=== PATIENT | female | born 1970 | race Caucasian/White ===

== ENCOUNTER 2017-10-02 19:51 | Emergency (ER) | payer BC ==
[2017-10-02 20:00] VITALS: BP 131/82
[2017-10-02] MEDS ORDERED: KETOROLAC TROMETHAMINE INJ/PF 30 MG/1 ML SDV IM ONE (20:16)
--- NOTE | 2017-10-02 20:36 | ER Document Report ---
HPI - HPI Pain Level: 3 Notes: Patient is a 46-year-old female with no significant past medical history aside from chronic left posterior ankle issues who presents to the ED complaining of left medial ankle pain and intermittent swelling 2-3 months. Patient does not recall any previous injury or mechanism of action. The pain does not radiate. Patient states that she is still ambulatory, but does have discomfort in doing so. Patient states that she has been seen by a insurance coordinator for a lump to the posterior foot/ankle, but they are not sure what it is. Patient states that that has remained unchanged, but does have medial ankle pain. Denies any drug allergies. No other concerns or complaints at this time. Denies any headache, fever, neck pain, URI, sore throat, chest pain, palpitations, syncope, cough, shortness of breath, wheeze, dyspnea, abdominal pain, nausea/vomiting/diarrhea, urinary retention, dysuria, hematuria, back pain, loss of control of bowel or bladder, numbness/tingling, muscle paralysis/weakness, or rash. - ROS Systems Reviewed and Negative: Yes All other systems reviewed and negative - REPRODUCTIVE LMP: na Reproductive: DENIES: : Past Medical History - Social History Smoking Status: Never Smoker Family History: Reviewed & Not Pertinent GI Medical History: Reports: Hx Gastroesophageal Reflux Disease Past Surgical History: Reports: Hx Cholecystectomy, Hx Hysterectomy, Hx Oral Surgery, Hx Orthopedic Surgery, Hx Tubal Ligation - Immunizations Immunizations up to date: Yes Hx Diphtheria, Pertussis, Tetanus Vaccination: Yes Vertical Provider Document - CONSTITUTIONAL Agree With Documented VS: Yes Notes: PHYSICAL EXAMINATION: GENERAL: Well-appearing, well-nourished and in no acute distress. LUNGS: Breath sounds clear to auscultation bilaterally and equal. No wheezes rales or rhonchi. HEART: Regular rate and rhythm without murmurs, rubs, gallops. Musculoskeletal: Left ankle: FROM to passive/active. Strength 5+/5. + mild swelling noted medially. + tenderness to the medial malleolus and inferior to. N/V intact distal. No other bony tenderness of the foot/ankle. Achilles intact. Marybel neg b/l (no erythema/asymmetry/tenderness). Pt able to weight bear with steady gait. Extremities: No cyanosis, clubbing, or edema b/l. Peripheral pulses 2+. Capillary refill less than 3 seconds. NEUROLOGICAL: Normal sensory, motor exams PSYCH: Normal mood, normal affect. SKIN: Warm, Dry, normal turgor, no rashes or lesions noted. - INFECTION CONTROL TRAVEL OUTSIDE OF THE [place] IN LAST 30 DAYS: No Course - Re-evaluation Re-evalutation: 10/02/17 20:45 Patient is an afebrile, well-hydrated, 46-year-old female who presents to the ED with left medial ankle pain, suspect inflammatory. Vitals are acceptable. PE is otherwise unremarkable for any neurovascular compromise, obvious tendon/ ligament rupture, obvious fracture/dislocation, septic joint. X-ray was unremarkable for any acute pathology. Toradol given IM today. Ankle stirrup splint provided today. Recommend conservative measures for symptoms. Recheck with your PCM in 3-5 days. Consider consult with orthopedic/physical therapy. Return to the ED with any worsening/concerning symptoms otherwise as reviewed discharge. Patient is in agreement. - Vital Signs Vital signs: Temp Pulse Resp BP Pulse Ox 98.6 F 81 16 131/82 H 95 10/02/17 19:59 10/02/17 19:59 10/02/17 19:59 10/02/17 19:59 10/02/17 19:59 Discharge - Discharge Clinical Impression: Left ankle pain Qualifiers: Chronicity: acute Qualified Code(s): M25.572 - Pain in left ankle and joints of left foot Condition: Stable Disposition: HOME, SELF-CARE Instructions: Ankle Stirrup Splint ([facility]), Ice & Elevation ([facility]) Additional Instructions: Rest, Ice, Compression, Elevation Use splint as directed Tylenol/ibuprofen as needed Light stretches daily Strength exercises as able Moist heat and massage may help F/u with your PCP in 3-5 days for a recheck Consider consult(s) with Orthopedics/physical therapy for ongoing/worsening symptoms Return to the ED with any worsening symptoms and/or development of fever, headache, chest pain, palpitations, syncope, shortness of breath, trouble breathing, abdominal pain, n/v/d, muscle weakness/paralysis, numbness/tingling, swelling, redness, or other worsening symptoms that are concerning to you. Prescriptions: Naproxen 500 mg PO BID PRN #30 tablet PRN Reason: Forms: Elevated Blood Pressure Referrals: [facility] ([facility]) [Provider Group] - Follow up as needed
--- NOTE | 2017-10-02 20:45 | RADIOLOGY REPORT (SQ) ---
EXAM DESCRIPTION: ANKLE LEFT COMPLETE COMPLETED DATE/TIME: 10/02/2017 8:34 pm REASON FOR STUDY: left medial ankle pain COMPARISON: None. NUMBER OF VIEWS: Three views. TECHNIQUE: AP, lateral, and oblique radiographic images acquired of the left ankle. LIMITATIONS: None. FINDINGS: MINERALIZATION: Normal. BONES: No acute fracture or dislocation. No worrisome bone lesions. Plantar calcaneal spurring. JOINTS: No effusions. SOFT TISSUES: No soft tissue swelling. No foreign body. OTHER: No other significant finding. IMPRESSION: CALCANEAL SPURRING. NO RADIOGRAPHIC EVIDENCE OF ACUTE INJURY. TECHNICAL DOCUMENTATION: JOB ID: [id number]- All Rights Reserved Reading location - IP/workstation name: [email or web address]
== END 2017-10-02 21:02 | disposition home or self-care (01) ==
LOC: ER 19:51
DX: M25.572 Pain in left ankle and joints of left foot (principal); M25.472 Effusion, left ankle
CPT/HCPCS: 99283; 96372; 73610; L1902; J1885

== ENCOUNTER 2020-04-17 12:57 | Emergency (ER) | payer SELFPAY ==
[2020-04-17 13:08] VITALS: BP 139/72
--- NOTE | 2020-04-17 14:25 | ER Document Report ---
ED Medical Screen (RME) - General Chief Complaint: Cough Stated Complaint: COUGH Time Seen by Provider: 04/17/20 14:21 Mode of Arrival: Ambulatory Information source: Patient Notes: 49-year-old female presented to ED for cough and congestion. She denies any fever sore throat loss or change of smell or taste. She denies any covered symptoms. She does smoke a pack a day. She states she does get bronchitis frequently she usually needs steroids and azithromycin from her doctor but she has lost her insurance so she cannot follow-up with her doctor. We will put her on the [place] I did get the x-ray flu and strep test and she will be seen by another provider. I have greeted and performed a rapid initial assessment of this patient. A comprehensive ED assessment and evaluation of the patient, analysis of test results and completion of medical decision making process will be conducted by an additional ED providers. TRAVEL OUTSIDE OF THE [place] IN LAST 30 DAYS: No - Related Data Allergies/Adverse Reactions: No Known Allergies Allergy (Verified 05/03/15 09:57) Past Medical History Renal/ Medical History: Denies: Hx Peritoneal Dialysis GI Medical History: Reports: Hx Gastroesophageal Reflux Disease Past Surgical History: Reports: Hx Cholecystectomy, Hx Hysterectomy, Hx Oral Surgery, Hx Orthopedic Surgery, Hx Tubal Ligation - Immunizations Immunizations up to date: Yes Hx Diphtheria, Pertussis, Tetanus Vaccination: Yes Physical Exam - Vital signs Vitals: Temp Pulse Resp BP Pulse Ox 98.9 F 88 16 139/72 H 98 04/17/20 13:07 04/17/20 13:07 04/17/20 13:07 04/17/20 13:07 04/17/20 13:07 Course - Vital Signs Vital signs: Temp Pulse Resp BP Pulse Ox 98.9 F 88 16 139/72 H 98 04/17/20 13:07 04/17/20 13:07 04/17/20 13:07 04/17/20 13:07 04/17/20 13:07
== END 2020-04-17 15:02 | disposition left against medical advice (07) ==
LOC: ER 12:57
DX: R05 Cough (principal); R68.89 Other general symptoms and signs; Z90.49 Acquired absence of other specified parts of digestive tract; Z90.710 Acquired absence of both cervix and uterus
CPT/HCPCS: 99281

== ENCOUNTER 2020-04-19 10:25 | Emergency (ER) | payer SELFPAY ==
[2020-04-19] MEDS ORDERED: PREDNISONE 20 MG TABLET PO ONE (10:57)
[2020-04-19] MEDS ORDERED: IPRATROPIUM/ALBUTEROL 0.5-2.5 MG/3 ML AMPUL NEB ONE (10:57)
--- NOTE | 2020-04-19 11:01 | ER Document Report ---
ED Respiratory Problem - General Chief Complaint: Congestion Stated Complaint: WHEEZING,CONGESTION,SORE THROAT Time Seen by Provider: 04/19/20 10:38 Notes: CHIEF COMPLAINT: Cough and shortness of breath HPI: 49-year-old female who is a pack-a-day smoker presenting for cough and shortness of breath states "I think I have bronchitis". Patient states she gets this every year. No fever. Patient has fluticasone and albuterol that she has been using last used her nebulizer at 6 AM this morning. Did not see her PCP for evaluation of the symptoms. Patient states she would like to be tested for COVID ROS: See HPI - all other systems were reviewed and are otherwise negative Constitutional: no fever Eyes: no drainage, no blurred vision ENT: no runny nose, no sore throat Cardiovascular: no chest pain Resp: + SOB, + cough GI: no vomiting, no diarrhea, no abdominal pain : no dysuria Integumentary: no rash Allergy: no hives Musculoskeletal: no extremity pain or swelling Neurological: no numbness/tingling, no weakness MEDICATIONS: I agree with the patient medications as charted by the RN. ALLERGIES: I agree with the allergies as charted by the RN. PAST MEDICAL HISTORY/PAST SURGICAL HISTORY: Reviewed and agree as charted by RN. SOCIAL HISTORY: Reviewed and agree as charted by RN. FAMILY HISTORY: No significant familial comorbid conditions directly related to patient complaint EXAM: Reviewed vital signs as charted by RN. CONSTITUTIONAL: Alert and oriented and responds appropriately to questions. Well-appearing; well-nourished HEAD: Normocephalic; atraumatic EYES: PERRL; Conjunctivae clear, sclerae non-icteric ENT: normal nose; no rhinorrhea; moist mucous membranes; pharynx without lesions noted, no uvula edema or deviation, no tonsillar hypertrophy, phonation normal NECK: Supple without meningismus; non-tender; no cervical lymphadenopathy, no masses CARD: RRR; no murmurs, no clicks, no rubs, no gallops; symmetric distal pulses RESP: Normal chest excursion without splinting or tachypnea; breath sounds noted to have expiratory wheezing in all lung jalloh, no rhonchi, no rales, pulse oximetry 97% on room air not hypoxic ABD/GI: Normal bowel sounds; non-distended; soft, non-tender, no rebound, no guarding; no palpable organomegaly or masses. BACK: The back appears normal and is non-tender to palpation, there is no CVA tenderness EXT: Normal ROM in all joints; non-tender to palpation; no cyanosis, no e ffusions, no edema SKIN: Normal color for age and race; warm; dry; good turgor; no acute lesions noted NEURO: Moves all extremities equally; Motor and sensory function intact PSYCH: The patient's mood and manner are appropriate. Grooming and personal hygiene are appropriate. MDM: 49-year-old female with cough and shortness of breath for 4 days. Will give breathing treatment as she is actively wheezing will start on steroids. She declines chest x-ray for infiltrate or pneumonia at this time. She would like a COVID test. TRAVEL OUTSIDE OF THE [place] IN LAST 30 DAYS: No - Related Data Allergies/Adverse Reactions: No Known Allergies Allergy (Verified 05/03/15 09:57) Past Medical History - Social History Smoking Status: Current Every Day Smoker Family History: Reviewed & Not Pertinent Renal/ Medical History: Denies: Hx Peritoneal Dialysis GI Medical History: Reports: Hx Gastroesophageal Reflux Disease Past Surgical History: Reports: Hx Cholecystectomy, Hx Hysterectomy, Hx Oral Surgery, Hx Orthopedic Surgery, Hx Tubal Ligation - Immunizations Immunizations up to date: Yes Hx Diphtheria, Pertussis, Tetanus Vaccination: Yes Physical Exam - Vital signs Vitals: Temp Pulse Resp BP Pulse Ox 98.8 F 77 16 127/88 H 97 04/19/20 10:04/19/20 10:04/19/20 10:04/19/20 10:04/19/20 10:29 Course - Re-evaluation Re-evalutation: 04/19/20 13:26 Patient feels much better. Lung sounds are improved still with very slight wheezing expiratory. Patient will be a person under investigation for COVID-19 at this time self quarantine at home. She has albuterol for her nebulizer. We will keep her on prednisone. Follow-up PCP. I will place the patient on doxycycline given her smoking history for a lower respiratory infection. - Vital Signs Vital signs: Temp Pulse Resp BP Pulse Ox 98.8 F 77 16 127/88 H 97 04/19/20 10:29 04/19/20 10:29 04/19/20 10:04/19/20 10:29 04/19/20 10:29 Discharge - Discharge Clinical Impression: Person under investigation for COVID-19, Lower respiratory infection, Acute bronchospasm, Tobacco use Condition: Stable Disposition: HOME, SELF-CARE Additional Instructions: Stop smoking. Use your nebulizer with the albuterol every 4 hours to help with wheezing and shortness of breath. Continue the prednisone as prescribed, you were given today's dose in the emergency department. Take the doxycycline as prescribed to treat the lower respiratory infection. Follow-up with your primary care provider for further evaluation and treatment call for appointment. You are considered a person under investigation for COVID-19 at this time, self quarantine at home over the next 2 to 5 days pending her test results which may take 2 to 5 days. You should hear from someone at the hospital about your test results Prescriptions: Prednisone [Deltasone 20 mg Tablet] 2 tab PO DAILY 5 Days #10 tablet Doxycycline Monohydrate 100 mg PO BID #20 capsule Referrals: ALENA AMBROSE MD [COMMUNITY BASED STAFF] - Follow up as needed
[2020-04-19 14:15] VITALS: BP 116/68
== END 2020-04-19 13:45 | disposition home or self-care (01) ==
LOC: ER 10:25
DX: J22 Unspecified acute lower respiratory infection (principal); J98.01 Acute bronchospasm; R05 Cough; R06.02 Shortness of breath; R06.2 Wheezing; F17.200 Nicotine dependence, unspecified, uncomplicated; Z20.828 Contact with and (suspected) exposure to other viral communicable diseases
CPT/HCPCS: 94640; 99283; 87635; J7512; C9803

== ENCOUNTER 2020-06-26 08:12 | Emergency (ER) | payer SELFPAY ==
[2020-06-26 09:40] LABS: ABSOLUTE BASOPHILS # (AUTO) 0.1 10^3/uL (0.0-0.2); ABSOLUTE EOSINOPHILS # (AUTO) 0.1 10^3/uL (0.0-0.6); ABSOLUTE LYMPHOCYTES (AUTO) 2.4 10^3/uL (0.5-4.7); ABSOLUTE MONOCYTES (AUTO) 0.5 10^3/uL (0.1-1.4); ABSOLUTE NEUT (AUTO) 4.9 10^3/uL (1.7-8.2); BASOPHILS % (AUTO) 0.7 % (0-2); HEMATOCRIT 40.3 % (36.0-47.0); HEMOGLOBIN 13.7 g/dL (12.0-15.5); LYMPHOCYTES % (AUTO) 30.6 % (13-45); MEAN CORPUSCULAR HEMOGLOBIN 31.8 pg (27.0-33.4); MEAN CORPUSCULAR HGB CONC 34.1 g/dL (32.0-36.0); MEAN CORPUSCULAR VOLUME 93 fl (80-97); MONOCYTES % (AUTO) 5.9 % (3-13); PLATELET COUNT 255 10^3/uL (150-450); RED BLOOD COUNT 4.32 10^6/uL (3.72-5.28); RED CELL DISTRIBUTION WIDTH 13.2 % (11.5-14.0); SEGMENTED NEUTROPHILS % (AUTO) 61.8 % (42-78); TOTAL CELLS COUNTED % (AUTO) 100 %
[2020-06-26 10:07] LABS: ALBUMIN 4.3 g/dL (3.5-5.0); ALKALINE PHOSPHATASE 65 U/L (38-126); ANION GAP 9 (5-19); ASPARTATE AMINO TRANSFERASE 28 U/L (14-36); BILIRUBIN,DIRECT 0.2 mg/dL (0.0-0.4); BILIRUBIN,TOTAL 0.5 mg/dL (0.2-1.3); BLOOD UREA NITROGEN 13 mg/dL (7-20); CALCIUM 9.5 mg/dL (8.4-10.2); CARBON DIOXIDE 25 mmol/L (22-30); CHLORIDE 102 mmol/L (98-107); CREATINE KINASE 42 U/L (30-135); GLUCOSE 105 mg/dL (75-110); POTASSIUM 4.4 mmol/L (3.6-5.0); TOTAL PROTEIN 6.8 g/dL (6.3-8.2)
[2020-06-26 10:19] LABS: CREATINE KINASE MB 0.26 ng/mL (<4.55)
--- NOTE | 2020-06-26 10:19 | RADIOLOGY REPORT (SQ) ---
EXAM DESCRIPTION: CHEST 2 VIEWS IMAGES COMPLETED DATE/TIME: 06/26/2020 9:43 am REASON FOR STUDY: chest pain COMPARISON: None. EXAM PARAMETERS: NUMBER OF VIEWS: two views TECHNIQUE: Digital Frontal and Lateral radiographic views of the chest acquired. RADIATION DOSE: NA LIMITATIONS: none FINDINGS: LUNGS AND PLEURA: No opacities, masses or pneumothorax. No pleural effusion. MEDIASTINUM AND HILAR STRUCTURES: No masses or contour abnormalities. HEART AND VASCULAR STRUCTURES: Heart normal size. No evidence for failure. BONES: No acute findings. HARDWARE: None in the chest. OTHER: No other significant finding. IMPRESSION: NO ACUTE RADIOGRAPHIC FINDING IN THE CHEST. TECHNICAL DOCUMENTATION: JOB ID: [id number] 2010 [employer]- All Rights Reserved Reading location - IP/workstation name: [email or web address]
[2020-06-26 10:20] LABS: TROPONIN I < 0.012 ng/mL
[2020-06-26] MEDS ORDERED: ASPIRIN 325 MG TABLET PO ONE (10:49)
--- NOTE | 2020-06-26 10:49 | ER Document Report ---
ED Cardiac - General Chief Complaint: Chest Pain Stated Complaint: CHEST PAIN Time Seen by Provider: 06/26/20 08:45 Primary Care Provider: GEMMA YANEZ [Primary Care Provider] - Follow up as needed Notes: HPI: 49-year-old female presents today stating Thursday she felt some substernal left-sided "pain" that she states felt like a "pulled muscle". Not exertional. No radiation. She stating that she does not have any pain at this time. She does smoke and mom had a history of a myocardial infarction at 63. She does have a history of reflux. She denies nausea, vomiting, calf pain or leg swelling. No shortness of breath or fevers. No cough or nasal congestion. ROS: See HPI All other review of systems reviewed and otherwise negative Reviewed vital signs and nursing note as charted by RN. PHYSICAL EXAM: CONSTITUTIONAL: Alert and oriented and responds appropriately to questions. Well-appearing; well-nourished HEAD: Normocephalic; atraumatic NECK: Supple without meningismus; non-tender; no cervical lymphadenopathy, no masses CARD: Regular rate and rhythm; no murmurs; symmetric distal pulses RESP: Normal chest excursion without splinting or tachypnea; breath sounds clear and equal bilaterally; no wheezes, no rhonchi, no rales ABD/GI: Normal bowel sounds; non-distended; soft, non-tender to deep palpation of all 4 quadrants of the abdomen including the epigastric region BACK: The back appears normal and is non-tender to palpation EXT: Normal ROM in all joints; non-tender to palpation; no edema SKIN: No acute lesions noted NEURO: CN 2-12 intact; 5/5 bilateral upper and lower extremity strength with sensation intact to light touch PSYCH: The patient's mood and manner are appropriate. Grooming and personal hygiene are appropriate. TRAVEL OUTSIDE OF THE [place] IN LAST 30 DAYS: No - Related Data Allergies/Adverse Reactions: No Known Allergies Allergy (Verified 05/03/15 09:57) Past Medical History - Social History Smoking Status: Unknown if Ever Smoked Family History: Reviewed & Not Pertinent Renal/ Medical History: Denies: Hx Peritoneal Dialysis GI Medical History: Reports: Hx Gastroesophageal Reflux Disease Past Surgical History: Reports: Hx Cholecystectomy, Hx Hysterectomy, Hx Oral Surgery, Hx Orthopedic Surgery, Hx Tubal Ligation - Immunizations Immunizations up to date: Yes Hx Diphtheria, Pertussis, Tetanus Vaccination: Yes Physical Exam - Vital signs Vitals: Temp Pulse Resp BP Pulse Ox 98.3 F 82 16 128/86 H 96 06/26/20 08:32 06/26/20 08:32 06/26/20 08:32 06/26/20 08:32 06/26/20 08:32 Course - Re-evaluation Re-evalutation: Given the above history and physical examination, we will obtain a cardiac panel in while as an EKG and an x-ray of the chest. Aspirin has been provided. Patient is currently chest pain-free with good oxygenation and not tachycardic. She denies shortness of breath. I do believe dissection and PE to be unlikely. EKG shows a heart rate of 89, normal sinus rhythm, normal axis, no ST elevation or depression. 06/26/20 10:47 Patient still chest pain-free. Initial troponin as recorded. 06/26/20 13:21 Labs and imaging as recorded. Repeat troponin as recorded. Patient is pain- free. Heart score is a 2. Patient looks extremely well and understands the importance of taking a baby aspirin and following up with the pediatrician/medical doctor that we have helped to connect with. Patient will be discharged home with strict return precautions. - Vital Signs Vital signs: Temp Pulse Resp BP Pulse Ox 98.7 F 81 18 128/78 H 98 06/26/20 13:08 06/26/20 13:08 06/26/20 13:08 06/26/20 13:08 06/26/20 13:08 - Laboratory Results Result Diagrams: 06/26/20 09:21 06/26/20 09:21 Laboratory Results Interpreted: 06/26/20 09:21 Sodium 136.1 L Critical Laboratory Results Reviewed: No Critical Results - Radiology Results Critical Radiology Results Reviewed: No Critical Results Discharge - Discharge Clinical Impression: Anterior chest wall pain Condition: Good Disposition: HOME, SELF-CARE Additional Instructions: Come back immediately with any worsening return of worsening pain, fevers, leg swelling, vomiting, or any other acute problems. Please follow-up with the pediatrician/medical doctor that we have expedited for you. Please take a baby aspirin once daily as discussed. Referrals: BEAU,NO [Primary Care Provider] - Follow up as needed LEIDY DILLON MD [ACTIVE STAFF] - Follow up as needed
[2020-06-26 13:09] VITALS: BP 128/78
--- NOTE | 2020-06-26 14:19 | EKG REPORT ---
SEVERITY:- BORDERLINE ECG - SINUS RHYTHM PROBABLE LEFT ATRIAL ABNORMALITY : Confirmed by: Dorota Yu MD 26-Jun-2020 14:17:48
== END 2020-06-26 13:43 | disposition home or self-care (01) ==
LOC: ER 08:12
DX: R07.89 Other chest pain (principal); F17.200 Nicotine dependence, unspecified, uncomplicated; Z90.49 Acquired absence of other specified parts of digestive tract; Z90.710 Acquired absence of both cervix and uterus
CPT/HCPCS: 36415; 71046; 80053; 82550; 82553; 84484; 85025; 93005; 93010; 99285

== ENCOUNTER 2020-08-09 11:04 | Emergency (ER) | payer SELFPAY ==
[2020-08-09 11:12] VITALS: BP 137/83
[2020-08-09] MEDS ORDERED: PREDNISONE 20 MG TABLET PO ONE (11:47)
[2020-08-09] MEDS ORDERED: IPRATROPIUM/ALBUTEROL 0.5-2.5 MG/3 ML AMPUL NEB ONE (11:47)
--- NOTE | 2020-08-09 11:48 | ER Document Report ---
ED Medical Screen (RME) - General Chief Complaint: Cough Stated Complaint: COUGH,CONGESTION Time Seen by Provider: 08/09/20 11:46 Primary Care Provider: GEMMA YANEZ [Primary Care Provider] - Follow up as needed Notes: HPI: 49-year-old female with asthma history presenting for cough and congestion for 1 week no fever. Does feel short of breath at times. Has been using albuterol inhaler and nebulizer at home with some relief during the week but it did not help this morning with her shortness of breath. Last Covid test was April PHYSICAL EXAMINATION: Spastic cough is noted very slight expiratory wheeze right lower posterior lobe I have greeted and performed a rapid initial assessment of this patient. A comprehensive ED assessment and evaluation of the patient, analysis of test results and completion of medical decision making process will be conducted by an additional ED providers. Please note that clinical decision making for this patient was made during the 2019 pandemic of novel coronavirus which caused a significant strain on the healthcare system including at this particular facility. Criteria for admission discharge and level of care decisions as well as treatment decisions have necessarily changed TRAVEL OUTSIDE OF THE [place] IN LAST 30 DAYS: No - Related Data Allergies/Adverse Reactions: No Known Allergies Allergy (Verified 08/09/20 11:42) Past Medical History Renal/ Medical History: Denies: Hx Peritoneal Dialysis GI Medical History: Reports: Hx Gastroesophageal Reflux Disease Past Surgical History: Reports: Hx Cholecystectomy, Hx Hysterectomy, Hx Oral Surgery, Hx Orthopedic Surgery, Hx Tubal Ligation - Immunizations Immunizations up to date: Yes Hx Diphtheria, Pertussis, Tetanus Vaccination: Yes Physical Exam - Vital signs Vitals: Temp Pulse Resp BP Pulse Ox 98.1 F 83 21 H 137/83 H 96 08/09/20 11:08 08/09/20 11:08 08/09/20 11:08 08/09/20 11:08 08/09/20 11:08 Course - Vital Signs Vital signs: Temp Pulse Resp BP Pulse Ox 98.1 F 83 21 H 137/83 H 96 08/09/20 11:08 08/09/20 11:08 08/09/20 11:08 08/09/20 11:08 08/09/20 11:08 Doctor's Discharge - Discharge Referrals: GEMMA YANEZ [Primary Care Provider] - Follow up as needed
--- NOTE | 2020-08-09 13:16 | RADIOLOGY REPORT (SQ) ---
EXAM DESCRIPTION: CHEST SINGLE VIEW IMAGES COMPLETED DATE/TIME: 08/09/2020 12:56 pm REASON FOR STUDY: cough COMPARISON: 06/26/2020 EXAM PARAMETERS: NUMBER OF VIEWS: One view. TECHNIQUE: Single frontal radiographic view of the chest acquired. RADIATION DOSE: NA LIMITATIONS: None. FINDINGS: LUNGS AND PLEURA: No opacities, masses or pneumothorax. No pleural effusion. MEDIASTINUM AND HILAR STRUCTURES: No masses. Contour normal. HEART AND VASCULAR STRUCTURES: Heart normal in size. Normal vasculature. BONES: No acute findings. HARDWARE: None in the chest. OTHER: No other significant finding. IMPRESSION: NO ACUTE RADIOGRAPHIC FINDING IN THE CHEST. TECHNICAL DOCUMENTATION: JOB ID: [id number] 2010 [email or web address]- All Rights Reserved Reading location - IP/workstation name: [email or web address]
[2020-08-09] MEDS ORDERED: ALBUTEROL SULFATE 0.083% NEB 2.5 MG/3 ML AMPUL NEB ONE (13:39)
--- NOTE | 2020-08-09 13:40 | ER Document Report ---
Entered by PHI CAVAZOS SCRIBE 08/09/20 1239 Acting as scribe for:AMY CASTILLO MD ED Respiratory Problem - General Chief Complaint: Cough Stated Complaint: COUGH,CONGESTION Time Seen by Provider: 08/09/20 11:46 Primary Care Provider: GEMMA YANEZ [NO LOCAL MD] - Follow up as needed Mode of Arrival: Ambulatory Information source: Patient Notes: This 49 year old female patient with a history of COPD presents to the ED today with complaints of productive cough with green/yellow sputum for the past x1 week. Patient states that she has to work really hard to bring up the sputum. She states that her symptoms feel similar to when she had bronchitis x8 months ago. Denies fever. She has been using her albuterol inhaler and nebulizer mac ronaldo at home with mild relief. She did not receive a flu shot this season. TRAVEL OUTSIDE OF THE [place] IN LAST 30 DAYS: No - Related Data Allergies/Adverse Reactions: No Known Allergies Allergy (Verified 08/09/20 11:42) Past Medical History - General Information source: Patient, [facility] Records - Social History Smoking Status: Current Every Day Smoker Cigarette use (# per day): Yes - 1 ppd Chew tobacco use (# tins/day): No Smoking Education Provided: No Drug Abuse: None Family History: Reviewed & Not Pertinent Pulmonary Medical History: Reports: Hx Bronchitis, Hx COPD GI Medical History: Reports: Hx Gastroesophageal Reflux Disease Past Surgical History: Reports: Hx Cholecystectomy, Hx Hysterectomy, Hx Oral Surgery, Hx Orthopedic Surgery, Hx Tubal Ligation - Immunizations Immunizations up to date: Yes Hx Diphtheria, Pertussis, Tetanus Vaccination: Yes Review of Systems - Review of Systems Constitutional: See HPI. denies: Fever EENT: No symptoms reported Cardiovascular: No symptoms reported Respiratory: See HPI, Cough, Sputum Gastrointestinal: No symptoms reported Genitourinary: No symptoms reported Female Genitourinary: No symptoms reported Musculoskeletal: No symptoms reported Skin: No symptoms reported Hematologic/Lymphatic: No symptoms reported Neurological/Psychological: No symptoms reported -: Yes All other systems reviewed and negative Physical Exam - Vital signs Vitals: Temp Pulse Resp BP Pulse Ox 98.1 F 83 21 H 137/83 H 96 08/09/20 11:08 08/09/20 11:08 08/09/20 11:08 08/09/20 11:08 08/09/20 11:08 - General General appearance: Alert In distress: None - HEENT Head: Normocephalic, Atraumatic Eyes: Normal Extraocular movements intact: Yes Pupils: PERRL Neck: Supple - Respiratory Respiratory status: No respiratory distress Chest status: Nontender Breath sounds: Wheezing - Inspiratory and expiratory wheezing Chest palpation: Normal - Cardiovascular Rhythm: Regular Heart sounds: Normal auscultation Murmur: No - Abdominal Inspection: Normal Distension: No distension Bowel sounds: Normal Tenderness: Nontender - Abdomen soft Organomegaly: No organomegaly - Back Back: Normal, Nontender - Extremities General upper extremity: Normal inspection General lower extremity: Normal inspection. No: Edema - Neurological Neuro grossly intact: Yes Orientation: AAOx4 Malini Coma Scale Eye Opening: Spontaneous [place]ini Coma Scale Verbal: Oriented [place] Coma Scale Motor: Obeys Commands Malini Coma Scale Total: 15 - Psychological Associated symptoms: Normal affect, Normal mood - Skin Skin Temperature: Warm Skin Moisture: Dry Skin Color: Normal Course - Re-evaluation Re-evalutation: 08/09/20 14:42 At this time patient has some very faint wheezes when she coughs. Otherwise lungs sound mostly clear. She states that her breathing feels back to normal for her. She has an inhaler that is mostly full, she has 3 boxes of medication for her nebulizer. We will give her a prescription for another inhaler, and a steroid Dosepak to start tomorrow. 08/09/20 14:43 - Vital Signs Vital signs: Temp Pulse Resp BP Pulse Ox 98.1 F 83 21 H 137/83 H 96 08/09/20 11:08 08/09/20 11:08 08/09/20 11:08 08/09/20 11:08 08/09/20 11:08 - Laboratory Results Critical Laboratory Results Reviewed: No Critical Results - Radiology Results Radiology Results Interpreted: 08/09/20 13:22 Chest x-ray did not show acute radiographic changes. Critical Radiology Results Reviewed: No Critical Results - EKG Interpretation by Me EKG shows normal: Sinus rhythm, [place], Intervals, QRS Complexes, ST-T Waves Rate: Normal - 85 Rhythm: NSR Discharge - Discharge Clinical Impression: Asthma exacerbation in COPD Condition: Stable Disposition: HOME, SELF-CARE Additional Instructions: Start the prednisone tomorrow, you had today's dose here in the emergency room. Use your nebulizer every 2-4 hours as needed for wheezing. Drink plenty of fluids throughout the day in the evening. Self isolate at home until you get results of your Covid test. Follow-up with a local primary care provider to help manage your respiratory problems. RETURN TO THE EMERGENCY ROOM IF ANY NEW OR WORSENING SYMPTOMS. Prescriptions: Prednisone [Deltasone 10 mg Tablet] 10 mg PO ASDIR PRN #21 tablet PRN Reason: Albuterol Sulfate [Proair Hfa Inhalation Aerosol 8.5 gm Mdi] 2 puff IH ASDIR PRN #1 mdi PRN Reason: Referrals: LOCALMD,NO [NO LOCAL MD] - Follow up as needed I personally performed the services described in the documentation, reviewed and edited the documentation which was dictated to the scribe in my presence, and it accurately records my words and actions.
--- NOTE | 2020-08-09 15:00 | EKG REPORT ---
SEVERITY:- NORMAL ECG - SINUS RHYTHM : Confirmed by: Dagoberto Plata MD 09-Aug-2020 14:59:47
== END 2020-08-09 15:00 | disposition home or self-care (01) ==
LOC: ER 11:04
DX: J45.901 Unspecified asthma with (acute) exacerbation (principal); J44.9 Chronic obstructive pulmonary disease, unspecified; R05 Cough; F17.210 Nicotine dependence, cigarettes, uncomplicated; Z79.899 Other long term (current) drug therapy; Z20.822 Contact with and (suspected) exposure to COVID-19
CPT/HCPCS: 93005; 94640 ×2; 99285; 87635; 71045; 93010; J7512; J7613; C9803; 36415